=== PATIENT | male | born 1960 | race Caucasian/White ===

== ENCOUNTER 2018-11-06 08:06 | Emergency (ER) | payer MEDICAID ==
[~2018-11-06] VITALS: Ht 177.8 cm; Wt 100.0 kg
[~2018-11-06 08:06] MED LIST: METO100T7 PO; OMEP20TA5 PO; QUET400T3 PO
[2018-11-06] MEDS ORDERED: normal saline 1000ml 1,000 ML IV ONE (09:04)
[2018-11-06] MEDS ORDERED: famotidine/PF 10 mg/ml inj IV ONE (09:05)
[2018-11-06] MEDS ORDERED: morphine 2 MG/ML inj. syringe IV PRN (09:05)
[2018-11-06] MEDS ORDERED: diphenhydrAMINE 50 mg/ml inj IV ONE (09:05)
[2018-11-06] MEDS ORDERED: proCHLORperazine 10 MG/2 ml inj IV ONE (09:05)
[2018-11-06] MEDS ORDERED: normal saline 1000ML IV soln IVB ONE ×2 (09:05→12:20)
[2018-11-06 09:15] LABS: ALANINE AMINOTRANSFERASE 31 U/L (12-78); ALBUMIN 4.5 G/DL (3.4-5.0); ALBUMIN/GLOBULIN RATIO 0.9 (1.1-1.5); ALKALINE PHOSPHATASE 100 IU/L (46-116); ANION GAP 18 (8-16); ASPARTATE AMINO TRANSFERASE 33 U/L (10-37); BLOOD UREA NITROGEN 23 MG/DL (7-18); BUN/CREATININE RATIO 15.6 (5.4-32.0); CALCIUM 10.3 MG/DL (8.5-10.1); CHLORIDE 99 MMOL/L (99-107); CREATININE 1.47 MG/DL (0.60-1.10); GLUCOSE 168 MG/DL (70-104); LIPASE 90 U/L (73-393); POTASSIUM 4.1 MMOL/L (3.5-5.1); SODIUM 140 MMOL/L (135-145); TOTAL CARBON DIOXIDE 22.6 MMOL/L (24-32); TOTAL PROTEIN 9.4 G/DL (6.4-8.2); eGFR 49 ML/MIN
[2018-11-06 09:34] LABS: INR 1.1 INR; PROTHROMBIN TIME 11.2 SECONDS (9.0-12.0)
[2018-11-06 09:44] LABS: MAGNESIUM 1.8 MG/DL (1.5-2.4)
[2018-11-06 09:47] LABS: BASOPHILS % (AUTO) 0.3 % (0-1); EOSINOPHILS % (AUTO) 0 % (0-6); HEMATOCRIT 54.2 % (42.0-52.0); LYMPHOCYTES # (AUTO) 0.8 X10'3 (1.1-4.8); LYMPHOCYTES % (AUTO) 5.2 % (21-51); MEAN CORPUSCULAR HEMOGLOBIN 31.3 PG (27.0-31.0); MEAN CORPUSCULAR HGB CONC 34.2 % (33.0-36.5); MEAN CORPUSCULAR VOLUME 91.4 FL (78-98); MEAN PLATELET VOLUME 9.4 FL (7.4-10.4); MONOCYTES # (AUTO) 0.5 X10'3 (0-0.9); NEUTROPHILS # (AUTO) 13.8 X10'3 (1.8-7.7); NEUTROPHILS % (AUTO) 91.5 % (42-75); PLATELET COUNT 257 X10'3 (140-440); RED BLOOD COUNT 5.93 X10'6 (4.70-6.10); RED CELL DISTRIBUTION WIDTH 13.3 % (11.5-14.5); WHITE BLOOD COUNT 15.1 X10'3 (4.5-11.0)
[2018-11-06 09:50] LABS: HEMOGLOBIN 18.5 g/dl (14.0-17.9)
[2018-11-06 09:55] LABS: CLARITY,URINE CLOUDY (Clear); COLOR,URINE YELLOW (Yellow); GLUCOSE, URINE NEGATIVE (Neg); KETONES,URINE 15 mg/dl (Neg); LEUKOCYTE ESTERASE ,URINE NEGATIVE (Neg); OCCULT BLOOD,URINE MODERATE (Neg); PH,URINE 5.5 (4.8-8.0); PROTEIN,URINE 100 mg/dl (Neg); UA COLLECTION TYPE CLN CATCH MIDSTREAM; UROBILINOGEN,URINE 0.2 E.U/dL (0.2-1.0)
[2018-11-06 10:03] LABS: NITRITES, URINE NEGATIVE (Neg)
[2018-11-06 10:05] LABS: HYALINE CASTS >30 /LPF (NEGATIVE)
[2018-11-06 10:06] LABS: BACTERIA,URINE 1+ /HPF (Neg); SQUAMOUS EPITHELIAL CELL,UR FEW /LPF (FEW)
[2018-11-06 10:07] LABS: FINE GRANULAR CAST 0-3 /LPF (NEGATIVE); RBC,URINE 0-2 /HPF (0-2)
--- NOTE | 2018-11-06 11:51 | NUR ---
FLU PRECAUTIONS DISCONTINUED
--- NOTE | 2018-11-06 12:14 | NUR ---
PATIENT TOLERATING PO FLLUID: 120 ML APPLE JUICE, DENIES NAUSEA OR INCREASED ABDOMINAL PAIN
[2018-11-06] MEDS ORDERED: PROC25SU30 PO (12:48)
[2018-11-06] MEDS ORDERED: LIDOcaine 1.5% w/epinephrine 1:200,000 5ml ampul IJ ONE (13:25)
[2018-11-06] MEDS ORDERED: LIDOcaine 1% w/epiNEPHrine 1:200,000 30ml vial IJ ONE (13:30)
[2018-11-06 13:57] VITALS: BP 145/67
--- NOTE | 2018-11-06 14:04 | NUR ---
WOUND CARE ORDERS ORDERED ON THE WRONG PATIENT
[2018-11-08] MEDS ORDERED: ONDA4TAB6 PO (17:43)
[2018-11-08] MEDS ORDERED: OMEP20TA23 PO (18:08)
[2018-11-08] MEDS ORDERED: LORA0.5T PO (20:32)
== END 2018-11-06 14:17 | disposition home or self-care (01) ==
LOC: ER 08:07
DX: E86.0 Dehydration (principal); R73.9 Hyperglycemia, unspecified; K52.9 Noninfective gastroenteritis and colitis, unspecified; E78.00 Pure hypercholesterolemia, unspecified; I10 Essential (primary) hypertension; F12.90 Cannabis use, unspecified, uncomplicated; Z86.19 Personal history of other infectious and parasitic diseases; Z90.49 Acquired absence of other specified parts of digestive tract; Z98.890 Other specified postprocedural states; Z88.8 Allergy status to other drugs, medicaments and biological substances; Z79.899 Other long term (current) drug therapy
CPT/HCPCS: 36415; 80053; 81001; 83690; 83735; 85025; 85610; 87088; 87502; 87503; 96361; 96374; 96375; 99283; J0780; J1200; J2270; J3490; J7030

== ENCOUNTER 2019-10-18 08:25 | Emergency (ER) | payer MEDICAID ==
[~2019-10-18] VITALS: Ht 180.3 cm; Wt 80.0 kg
[~2019-10-18 08:25] MED LIST changes: +HYDR-4383 PO; +OMEP20TA23 PO; +ONDA4TAB6 PO; +PROC25SU30 PO; -QUET400T3 PO; +QUET400T5 PO
[2019-10-18 09:14] LABS: BASOPHILS # (AUTO) 0.1 X10'3 (0-0.2); BASOPHILS % (AUTO) 0.3 % (0-1); EOSINOPHILS % (AUTO) 0 % (0-6); HEMATOCRIT 50.4 % (42.0-52.0); HEMOGLOBIN 17.9 g/dl (14.0-17.9); LYMPHOCYTES # (AUTO) 1.3 X10'3 (1.1-4.8); LYMPHOCYTES % (AUTO) 7.6 % (21-51); MEAN CORPUSCULAR HEMOGLOBIN 32.3 PG (27.0-31.0); MEAN CORPUSCULAR HGB CONC 35.6 g/dL (33.0-36.5); MEAN CORPUSCULAR VOLUME 90.7 FL (78-98); MEAN PLATELET VOLUME 7.9 FL (7.4-10.4); MONOCYTES # (AUTO) 0.6 X10'3 (0-0.9); MONOCYTES % (AUTO) 3.6 % (2-12); NEUTROPHILS # (AUTO) 14.6 X10'3 (1.8-7.7); NEUTROPHILS % (AUTO) 88.5 % (42-75); PLATELET COUNT 214 X10'3 (140-440); RED BLOOD COUNT 5.56 X10'6 (4.70-6.10); RED CELL DISTRIBUTION WIDTH 12.9 % (11.5-14.5); WHITE BLOOD COUNT 16.5 X10'3 (4.5-11.0)
[2019-10-18 09:27] LABS: ALANINE AMINOTRANSFERASE 24 U/L (12-78); ALBUMIN 4.3 G/DL (3.4-5.0); ALBUMIN/GLOBULIN RATIO 1.1 (1.1-1.5); ALKALINE PHOSPHATASE 95 IU/L (46-116); AMYLASE 37 U/L (25-115); ANION GAP 12 (8-16); ASPARTATE AMINO TRANSFERASE 19 U/L (10-37); BILIRUBIN,TOTAL 1.3 MG/DL (0.1-1.0); BLOOD UREA NITROGEN 8 MG/DL (7-18); BUN/CREATININE RATIO 8.5 (5.4-32.0); CALCIUM 9.4 MG/DL (8.5-10.1); CHLORIDE 105 MMOL/L (99-107); CREATININE 0.94 MG/DL (0.60-1.10); GLUCOSE 137 MG/DL (70-104); LIPASE 70 U/L (73-393); POTASSIUM 3.8 MMOL/L (3.5-5.1); SODIUM 141 MMOL/L (135-145); TOTAL CARBON DIOXIDE 24.4 MMOL/L (24-32); TOTAL PROTEIN 8.3 G/DL (6.4-8.2); eGFR 82 ML/MIN
[2019-10-18] MEDS ORDERED: mag hydrox/Alum hydrox/simeth 30ml oral suspension PO ONE (10:00)
[2019-10-18] MEDS ORDERED: normal saline 1000ML IV soln IVB ONE (10:00)
[2019-10-18] MEDS ORDERED: ondansetron/PF 4mg/2ml inj IV ONE (10:00)
[2019-10-18] MEDS ORDERED: haloperidol lactate 5mg/ml inj IM ONE (10:00)
[2019-10-18] MEDS ORDERED: diphenhydrAMINE 50 mg/ml inj IV ONE (10:00)
[2019-10-18] MEDS ORDERED: ketorolac tromethamine 15mg/ml inj. IV ONE (10:05)
[2019-10-18] MEDS ORDERED: famotidine 10mg tablet PO ONE (11:25)
[2019-10-18] MEDS ORDERED: famotidine 20mg tablet PO ONE (11:25)
[2019-10-18] MEDS ORDERED: dicyclomine 10 MG capsule PO ONE (11:25)
[2019-10-18 11:31] VITALS: BP 175/88
[2019-10-18] MEDS ORDERED: LORazepam 2 mg/ml vial IV ONE (12:20)
[2019-10-18] MEDS ORDERED: ONDA4TAB6 PO (12:20)
[2019-10-18] MEDS ORDERED: DICY10CA88 PO (12:20)
[2019-10-18] MEDS ORDERED: MAG355OR18 PO (12:20)
== END 2019-10-18 12:41 | disposition home or self-care (01) ==
LOC: ER 08:26
DX: K29.70 Gastritis, unspecified, without bleeding (principal); I10 Essential (primary) hypertension; F31.9 Bipolar disorder, unspecified; F12.90 Cannabis use, unspecified, uncomplicated; F17.200 Nicotine dependence, unspecified, uncomplicated; F10.99 Alcohol use, unspecified with unspecified alcohol-induced disorder; Z79.899 Other long term (current) drug therapy; Z90.49 Acquired absence of other specified parts of digestive tract; Z86.19 Personal history of other infectious and parasitic diseases; Z90.89 Acquired absence of other organs; Y90.9 Presence of alcohol in blood, level not specified
CPT/HCPCS: 80053; 82150; 83690; 85025; 93005; 96361; 96372; 96374; 96375; 99284; J1200; J1630; J1885; J2060; J2405; J7030

== ENCOUNTER 2020-02-12 20:14 | Emergency (ER) | payer MEDICAID ==
[~2020-02-12] VITALS: Ht 177.8 cm; Wt 87.0 kg
[~2020-02-12 20:14] MED LIST changes: +DICY10CA88 PO
[2020-02-12] MEDS ORDERED: proCHLORperazine 10 MG/2 ml inj IV ONE (20:55)
[2020-02-12] MEDS ORDERED: LIDOcaine Viscous 15ml cup TP ONE (20:55)
[2020-02-12] MEDS ORDERED: mag hydrox/Alum hydrox/simeth 30ml oral suspension PO ONE (20:55)
[2020-02-12] MEDS ORDERED: normal saline 1000ML IV soln IVB ONE (20:55)
[2020-02-12 20:57] LABS: BASOPHILS # (AUTO) 0.1 X10'3 (0-0.2); BASOPHILS % (AUTO) 0.6 % (0-1); EOSINOPHILS % (AUTO) 0.1 % (0-6); HEMATOCRIT 49.4 % (42.0-52.0); HEMOGLOBIN 17.3 g/dl (14.0-17.9); LYMPHOCYTES # (AUTO) 1.1 X10'3 (1.1-4.8); LYMPHOCYTES % (AUTO) 11.4 % (21-51); MEAN CORPUSCULAR HEMOGLOBIN 32.2 PG (27.0-31.0); MEAN CORPUSCULAR HGB CONC 35.1 g/dL (33.0-36.5); MEAN CORPUSCULAR VOLUME 91.8 FL (78-98); MONOCYTES # (AUTO) 0.4 X10'3 (0-0.9); MONOCYTES % (AUTO) 4.2 % (2-12); NEUTROPHILS # (AUTO) 8.2 X10'3 (1.8-7.7); NEUTROPHILS % (AUTO) 83.7 % (42-75); PLATELET COUNT 245 X10'3 (140-440); RED BLOOD COUNT 5.39 X10'6 (4.70-6.10); RED CELL DISTRIBUTION WIDTH 13.3 % (11.5-14.5); WHITE BLOOD COUNT 9.8 X10'3 (4.5-11.0)
[2020-02-12 21:07] LABS: ALANINE AMINOTRANSFERASE 40 U/L (12-78); ALBUMIN 4.5 G/DL (3.4-5.0); ALBUMIN/GLOBULIN RATIO 1.2 (1.1-1.5); ALKALINE PHOSPHATASE 88 IU/L (46-116); ANION GAP 13 (8-16); ASPARTATE AMINO TRANSFERASE 50 U/L (10-37); BILIRUBIN,TOTAL 1.8 MG/DL (0.1-1.0); BLOOD UREA NITROGEN 20 MG/DL (7-18); BUN/CREATININE RATIO 16.7 (5.4-32.0); CALCIUM 9.4 MG/DL (8.5-10.1); CHLORIDE 102 MMOL/L (99-107); GLUCOSE 136 MG/DL (70-104); LIPASE 209 U/L (73-393); POTASSIUM 3.5 MMOL/L (3.5-5.1); SODIUM 139 MMOL/L (135-145); TOTAL CARBON DIOXIDE 24.2 MMOL/L (24-32); TOTAL PROTEIN 8.2 G/DL (6.4-8.2); eGFR 62 ML/MIN
[2020-02-12 21:20] LABS: CLARITY,URINE SLIGHTLY CLOUDY (Clear); COLOR,URINE YELLOW (Yellow); GLUCOSE, URINE NEGATIVE (Neg); KETONES,URINE 40 mg/dl (Neg); LEUKOCYTE ESTERASE ,URINE NEGATIVE (Neg); NITRITES, URINE NEGATIVE (Neg); OCCULT BLOOD,URINE TRACE-INTACT (Neg); PROTEIN,URINE 100 mg/dl (Neg)
[2020-02-12 21:24] LABS: UA COLLECTION TYPE CLN CATCH MIDSTREAM
[2020-02-12 21:26] LABS: BACTERIA,URINE FEW /HPF (Neg); MUCUS STRANDS MODERATE /LPF (Neg); RBC,URINE 0-2 /HPF (0-2); SQUAMOUS EPITHELIAL CELL,UR FEW /LPF (FEW); WBC,URINE 0-4 /HPF (0-4)
[2020-02-12 21:44] VITALS: BP 147/110
[2020-02-12] MEDS ORDERED: MECL-183 PO (22:03)
[2020-02-12] MEDS ORDERED: ketorolac tromethamine 15mg/ml inj. IV ONE (22:10)
== END 2020-02-12 22:23 | disposition home or self-care (01) ==
LOC: ER 20:14
DX: K29.70 Gastritis, unspecified, without bleeding (principal); R10.13 Epigastric pain; R11.10 Vomiting, unspecified; R19.7 Diarrhea, unspecified; K59.00 Constipation, unspecified; E78.00 Pure hypercholesterolemia, unspecified; I10 Essential (primary) hypertension; F31.9 Bipolar disorder, unspecified; F12.90 Cannabis use, unspecified, uncomplicated; Z86.19 Personal history of other infectious and parasitic diseases; Z90.49 Acquired absence of other specified parts of digestive tract; Z90.89 Acquired absence of other organs; Z98.890 Other specified postprocedural states; Z91.09 Other allergy status, other than to drugs and biological substances; Z79.899 Other long term (current) drug therapy
CPT/HCPCS: 36415; 80053; 81001; 83690; 85025; 96361; 96374; 96375; 99284; J0780; J1885; J7030

== ENCOUNTER 2020-12-11 21:47 | Emergency (ER) | payer MEDICAID ==
[~2020-12-11] VITALS: Ht 180.3 cm; Wt 95.4 kg
[~2020-12-11 21:47] MED LIST changes: +MECL-226 PO
[2020-12-11] MEDS ORDERED: mag hydrox/Alum hydrox/simeth 30ml oral suspension PO ONE (22:40)
[2020-12-11] MEDS ORDERED: LIDOcaine Viscous 15ml cup MM ONE (22:40)
[2020-12-11] MEDS ORDERED: normal saline 1000ML IV soln IVB ONE (22:40)
[2020-12-11] MEDS ORDERED: ondansetron/PF 4mg/2ml inj IV ONE (22:40)
[2020-12-11] MEDS ORDERED: metoclopramide 5 mg/ml inj IV ONE (22:40)
[2020-12-11] MEDS ORDERED: LORazepam 2 mg/ml vial IV ONE (22:40)
[2020-12-11 22:55] LABS: BASOPHILS % (AUTO) 0.3 % (0-1); EOSINOPHILS # (AUTO) 0.1 X10'3 (0-0.9); EOSINOPHILS % (AUTO) 0.8 % (0-6); HEMATOCRIT 46.3 % (42.0-52.0); HEMOGLOBIN 16.3 g/dl (14.0-17.9); LYMPHOCYTES # (AUTO) 1.3 X10'3 (1.1-4.8); LYMPHOCYTES % (AUTO) 15.4 % (21-51); MEAN CORPUSCULAR HEMOGLOBIN 31.1 PG (27.0-31.0); MEAN CORPUSCULAR HGB CONC 35.2 g/dL (33.0-36.5); MEAN CORPUSCULAR VOLUME 88.5 FL (78-98); MONOCYTES # (AUTO) 0.5 X10'3 (0-0.9); MONOCYTES % (AUTO) 5.6 % (2-12); NEUTROPHILS # (AUTO) 6.7 X10'3 (1.8-7.7); NEUTROPHILS % (AUTO) 77.9 % (42-75); PLATELET COUNT 212 X10'3 (140-440); RED BLOOD COUNT 5.23 X10'6 (4.70-6.10); WHITE BLOOD COUNT 8.7 X10'3 (4.5-11.0)
[2020-12-11 23:17] LABS: ALANINE AMINOTRANSFERASE 48 U/L (12-78); ALBUMIN 4.1 G/DL (3.4-5.0); ALBUMIN/GLOBULIN RATIO 1.1 (1.1-1.5); ALKALINE PHOSPHATASE 90 IU/L (46-116); ANION GAP 11 (8-16); ASPARTATE AMINO TRANSFERASE 48 U/L (10-37); BILIRUBIN,TOTAL 1.2 MG/DL (0.1-1.0); BLOOD UREA NITROGEN 16 MG/DL (7-18); BUN/CREATININE RATIO 13.8 (5.4-32.0); CALCIUM 9.2 MG/DL (8.5-10.1); CHLORIDE 103 MMOL/L (99-107); CREATININE 1.16 MG/DL (0.60-1.10); GLUCOSE 156 MG/DL (70-104); LIPASE 70 U/L (73-393); POTASSIUM 3.3 MMOL/L (3.5-5.1); SODIUM 140 MMOL/L (135-145); TOTAL CARBON DIOXIDE 26.1 MMOL/L (24-32); TOTAL PROTEIN 7.7 G/DL (6.4-8.2); eGFR 64 ML/MIN
[2020-12-11] MEDS ORDERED: POLY119P2 PO (23:45)
[2020-12-12 00:25] LABS: CLARITY,URINE SLIGHTLY CLOUDY (Clear); COLOR,URINE YELLOW (Yellow); GLUCOSE, URINE NEGATIVE (Neg); KETONES,URINE >=80 mg/dl (Neg); LEUKOCYTE ESTERASE ,URINE TRACE (Neg); NITRITES, URINE NEGATIVE (Neg); OCCULT BLOOD,URINE LARGE (Neg); PROTEIN,URINE 30 mg/dl (Neg)
[2020-12-12 00:31] LABS: UA COLLECTION TYPE CLN CATCH MIDSTREAM
[2020-12-12 00:32] LABS: BACTERIA,URINE FEW /HPF (Neg); RBC,URINE 50-100 /HPF (0-2); SQUAMOUS EPITHELIAL CELL,UR FEW /LPF (FEW); WBC,URINE 0-4 /HPF (0-4)
[2020-12-12 02:20] VITALS: BP 165/95
== END 2020-12-12 02:21 | disposition home or self-care (01) ==
LOC: ER 21:47
DX: R10.10 Upper abdominal pain, unspecified (principal); R11.2 Nausea with vomiting, unspecified; K59.00 Constipation, unspecified; E78.00 Pure hypercholesterolemia, unspecified; I10 Essential (primary) hypertension; F31.9 Bipolar disorder, unspecified; F17.200 Nicotine dependence, unspecified, uncomplicated; F12.90 Cannabis use, unspecified, uncomplicated; Z86.19 Personal history of other infectious and parasitic diseases; Z90.49 Acquired absence of other specified parts of digestive tract; Z90.89 Acquired absence of other organs; Z88.8 Allergy status to other drugs, medicaments and biological substances; Z79.899 Other long term (current) drug therapy
CPT/HCPCS: 36415; 80053; 81001; 83690; 85025; 87088; 96361; 96374; 96375; 99284; J2060; J2405; J2765; J7030

== ENCOUNTER 2020-12-16 07:28 | Emergency (ER) | payer MEDICAID ==
[~2020-12-16] VITALS: Ht 180.3 cm; Wt 89.1 kg
[~2020-12-16 07:28] MED LIST changes: +POLY119P2 PO
[2020-12-16 07:34] VITALS: BP 145/98
[2020-12-16] MEDS ORDERED: normal saline 1000ML IV soln IVB ONE (08:05)
[2020-12-16] MEDS ORDERED: ondansetron/PF 4mg/2ml inj IV ONE (08:05)
[2020-12-16] MEDS ORDERED: LIDOcaine Viscous 15ml cup MM ONE (08:05)
[2020-12-16] MEDS ORDERED: mag hydrox/Alum hydrox/simeth 30ml oral suspension PO ONE (08:05)
[2020-12-16] MEDS ORDERED: famotidine 20mg tablet PO ONE (08:05)
[2020-12-16 08:51] LABS: ALBUMIN 4.2 G/DL (3.4-5.0); ANION GAP 10 (8-16); BILIRUBIN,TOTAL 1.2 MG/DL (0.1-1.0); BLOOD UREA NITROGEN 10 MG/DL (7-18); BUN/CREATININE RATIO 10.6 (5.4-32.0); CALCIUM 9.6 MG/DL (8.5-10.1); CHLORIDE 104 MMOL/L (99-107); CREATININE 0.94 MG/DL (0.60-1.10); GLUCOSE 125 MG/DL (70-104); POTASSIUM 3.9 MMOL/L (3.5-5.1); SODIUM 142 MMOL/L (135-145); TOTAL CARBON DIOXIDE 28.1 MMOL/L (24-32); TOTAL PROTEIN 8.4 G/DL (6.4-8.2); eGFR 81 ML/MIN
[2020-12-16 08:52] LABS: ALANINE AMINOTRANSFERASE 47 U/L (12-78); ALKALINE PHOSPHATASE 106 IU/L (46-116); ASPARTATE AMINO TRANSFERASE 25 U/L (10-37); LIPASE 78 U/L (73-393)
[2020-12-16 09:13] LABS: BASOPHILS % (AUTO) 0.3 % (0-1); EOSINOPHILS % (AUTO) 0.1 % (0-6); LYMPHOCYTES # (AUTO) 0.8 X10'3 (1.1-4.8); LYMPHOCYTES % (AUTO) 7.9 % (21-51); MEAN PLATELET VOLUME 8.3 FL (7.4-10.4); MONOCYTES # (AUTO) 0.4 X10'3 (0-0.9); MONOCYTES % (AUTO) 3.6 % (2-12); NEUTROPHILS # (AUTO) 8.7 X10'3 (1.8-7.7); NEUTROPHILS % (AUTO) 88.1 % (42-75); PLATELET COUNT 251 X10'3 (140-440); RED CELL DISTRIBUTION WIDTH 13.1 % (11.5-14.5); WHITE BLOOD COUNT 9.9 X10'3 (4.5-11.0)
[2020-12-16 09:23] LABS: HEMATOCRIT 48.5 % (42.0-52.0); HEMOGLOBIN 16.9 g/dl (14.0-17.9); MEAN CORPUSCULAR HEMOGLOBIN 31.9 PG (27.0-31.0); MEAN CORPUSCULAR HGB CONC 34.8 g/dL (33.0-36.5); MEAN CORPUSCULAR VOLUME 91.7 FL (78-98); RED BLOOD COUNT 5.29 X10'6 (4.70-6.10)
[2020-12-16] MEDS ORDERED: BISA10SU60 RC (09:31)
[2020-12-16] MEDS ORDERED: BISA-78 PO (09:31)
== END 2020-12-16 09:43 | disposition home or self-care (01) ==
LOC: ER 07:28
DX: K29.00 Acute gastritis without bleeding (principal); K59.00 Constipation, unspecified; R10.13 Epigastric pain; R11.2 Nausea with vomiting, unspecified; E78.00 Pure hypercholesterolemia, unspecified; I10 Essential (primary) hypertension; K21.9 Gastro-esophageal reflux disease without esophagitis; G89.29 Other chronic pain; F31.9 Bipolar disorder, unspecified; F17.200 Nicotine dependence, unspecified, uncomplicated; F12.90 Cannabis use, unspecified, uncomplicated; Z86.19 Personal history of other infectious and parasitic diseases; Z90.49 Acquired absence of other specified parts of digestive tract; Z90.89 Acquired absence of other organs; Z88.8 Allergy status to other drugs, medicaments and biological substances; Z79.899 Other long term (current) drug therapy
CPT/HCPCS: 36415; 80053; 83690; 85025; 96361; 96374; 99284; J2405; J7030

== ENCOUNTER 2020-12-22 10:11 | Emergency (ER) | payer MEDICAID ==
[~2020-12-22] VITALS: Ht 177.8 cm; Wt 87.9 kg
[~2020-12-22 10:11] MED LIST changes: +BISA-78 PO; +BISA10SU60 RC
[2020-12-22] MEDS ORDERED: mag hydrox/Alum hydrox/simeth 30ml oral suspension PO ONE (10:50)
[2020-12-22] MEDS ORDERED: normal saline 1000ml 1,000 ML IV ONE (10:50)
[2020-12-22] MEDS ORDERED: LIDOcaine Viscous 15ml cup MM ONE (10:50)
[2020-12-22] MEDS ORDERED: famotidine/PF 10 mg/ml inj IV ONE (10:50)
[2020-12-22] MEDS ORDERED: ondansetron/PF 4mg/2ml inj IV ONE (10:50)
[2020-12-22 11:13] LABS: CLARITY,URINE SLIGHTLY CLOUDY (Clear); COLOR,URINE YELLOW (Yellow); GLUCOSE, URINE NEGATIVE (Neg); KETONES,URINE NEGATIVE (Neg); LEUKOCYTE ESTERASE ,URINE NEGATIVE (Neg); NITRITES, URINE NEGATIVE (Neg); OCCULT BLOOD,URINE NEGATIVE (Neg); PH,URINE >=9.0 (4.8-8.0); PROTEIN,URINE 30 mg/dl (Neg)
[2020-12-22 11:15] LABS: UA COLLECTION TYPE CLN CATCH MIDSTREAM
[2020-12-22 11:16] VITALS: BP 127/92
[2020-12-22 11:18] LABS: BASOPHILS % (AUTO) 0.3 % (0-1); EOSINOPHILS % (AUTO) 0.4 % (0-6); HEMATOCRIT 50.8 % (42.0-52.0); HEMOGLOBIN 17.9 g/dl (14.0-17.9); LYMPHOCYTES # (AUTO) 1.2 X10'3 (1.1-4.8); LYMPHOCYTES % (AUTO) 10.5 % (21-51); MEAN CORPUSCULAR HGB CONC 35.2 g/dL (33.0-36.5); MEAN PLATELET VOLUME 8.1 FL (7.4-10.4); MONOCYTES # (AUTO) 0.4 X10'3 (0-0.9); MONOCYTES % (AUTO) 3.5 % (2-12); NEUTROPHILS # (AUTO) 9.8 X10'3 (1.8-7.7); NEUTROPHILS % (AUTO) 85.3 % (42-75); PLATELET COUNT 274 X10'3 (140-440); RED BLOOD COUNT 5.77 X10'6 (4.70-6.10); RED CELL DISTRIBUTION WIDTH 13.1 % (11.5-14.5); WHITE BLOOD COUNT 11.5 X10'3 (4.5-11.0)
[2020-12-22 11:23] LABS: MUCUS STRANDS MANY /LPF (Neg); SQUAMOUS EPITHELIAL CELL,UR FEW /LPF (FEW)
[2020-12-22 11:23] LABS: ALANINE AMINOTRANSFERASE 40 U/L (12-78); ALBUMIN 4.2 G/DL (3.4-5.0); ALBUMIN/GLOBULIN RATIO 1.1 (1.1-1.5); ALKALINE PHOSPHATASE 109 IU/L (46-116); ANION GAP 10 (8-16); ASPARTATE AMINO TRANSFERASE 22 U/L (10-37); BILIRUBIN,TOTAL 1.2 MG/DL (0.1-1.0); BLOOD UREA NITROGEN 10 MG/DL (7-18); BUN/CREATININE RATIO 11.1 (5.4-32.0); CALCIUM 9.5 MG/DL (8.5-10.1); CHLORIDE 104 MMOL/L (99-107); GLUCOSE 125 MG/DL (70-104); LIPASE 68 U/L (73-393); POTASSIUM 4.2 MMOL/L (3.5-5.1); SODIUM 140 MMOL/L (135-145); TOTAL CARBON DIOXIDE 25.6 MMOL/L (24-32); TOTAL PROTEIN 8.2 G/DL (6.4-8.2); eGFR 86 ML/MIN
[2020-12-22 11:24] LABS: BACTERIA,URINE FEW /HPF (Neg)
[2020-12-22 11:26] LABS: HYALINE CASTS 0-3 /LPF (NEGATIVE)
[2020-12-22 11:28] LABS: RBC,URINE 0-2 /HPF (0-2); WBC,URINE 0-4 /HPF (0-4)
[2020-12-22 11:31] LABS: TRANSITIONAL EPI CELLS,URINE FEW /HPF
== END 2020-12-22 12:13 | disposition home or self-care (01) ==
LOC: ER 10:15
DX: R11.2 Nausea with vomiting, unspecified (principal); K59.00 Constipation, unspecified; R10.13 Epigastric pain; E78.00 Pure hypercholesterolemia, unspecified; I10 Essential (primary) hypertension; K21.9 Gastro-esophageal reflux disease without esophagitis; G89.29 Other chronic pain; F12.90 Cannabis use, unspecified, uncomplicated; Z86.19 Personal history of other infectious and parasitic diseases; Z90.49 Acquired absence of other specified parts of digestive tract; Z90.89 Acquired absence of other organs; Z88.8 Allergy status to other drugs, medicaments and biological substances; Z79.899 Other long term (current) drug therapy
CPT/HCPCS: 36415; 80053; 81001; 83690; 85025; 96361; 96374; 96375; 99284; J2405; J3490; J7030

== ENCOUNTER 2021-03-20 16:33 | Emergency (ER) | payer MEDICAID ==
[~2021-03-20] VITALS: Ht 177.8 cm; Wt 90.0 kg
[2021-03-20] MEDS ORDERED: LIDOcaine Viscous 15ml cup MM ONE (16:55)
[2021-03-20] MEDS ORDERED: ondansetron 4mg rapidly disintigrating tab PO ONE (16:55)
[2021-03-20] MEDS ORDERED: mag hydrox/Alum hydrox/simeth 30ml oral suspension PO ONE (16:55)
[2021-03-20 17:36] VITALS: BP 120/71
== END 2021-03-20 17:39 | disposition home or self-care (01) ==
LOC: ER 16:34
DX: R10.13 Epigastric pain (principal); R11.2 Nausea with vomiting, unspecified; K59.00 Constipation, unspecified; E78.00 Pure hypercholesterolemia, unspecified; I10 Essential (primary) hypertension; K21.9 Gastro-esophageal reflux disease without esophagitis; G89.29 Other chronic pain; F31.9 Bipolar disorder, unspecified; F12.90 Cannabis use, unspecified, uncomplicated; Z86.19 Personal history of other infectious and parasitic diseases; Z90.49 Acquired absence of other specified parts of digestive tract; Z90.89 Acquired absence of other organs; Z88.8 Allergy status to other drugs, medicaments and biological substances; Z79.899 Other long term (current) drug therapy
CPT/HCPCS: 99283

== ENCOUNTER 2021-08-01 08:55 | Emergency (ER) | payer MEDICAID ==
[~2021-08-01] VITALS: Ht 177.8 cm; Wt 221.0 kg
[2021-08-01] MEDS ORDERED: ondansetron 4mg rapidly disintigrating tab PO STA (09:12)
[2021-08-01] MEDS ORDERED: mag hydrox/Alum hydrox/simeth 30ml oral suspension PO ONE (09:15)
[2021-08-01] MEDS ORDERED: sucralfate 1 gm tablet PO ONE (09:15)
[2021-08-01] MEDS ORDERED: LIDOcaine Viscous 15ml cup MM ONE (09:15)
[2021-08-01 10:23] VITALS: BP 216/104
[2021-08-01] MEDS ORDERED: PANT-47 PO (11:06)
[2021-08-01] MEDS ORDERED: SUCR1TAB34 PO (11:06)
== END 2021-08-01 12:19 | disposition home or self-care (01) ==
LOC: ER 08:56
DX: K29.70 Gastritis, unspecified, without bleeding (principal); R11.2 Nausea with vomiting, unspecified; R10.10 Upper abdominal pain, unspecified; E78.00 Pure hypercholesterolemia, unspecified; I10 Essential (primary) hypertension; K21.9 Gastro-esophageal reflux disease without esophagitis; G89.29 Other chronic pain; F31.9 Bipolar disorder, unspecified; F17.200 Nicotine dependence, unspecified, uncomplicated; F12.90 Cannabis use, unspecified, uncomplicated; Z86.19 Personal history of other infectious and parasitic diseases; Z90.49 Acquired absence of other specified parts of digestive tract; Z90.89 Acquired absence of other organs; Z98.890 Other specified postprocedural states; Z88.8 Allergy status to other drugs, medicaments and biological substances; Z79.899 Other long term (current) drug therapy
CPT/HCPCS: 99284

== ENCOUNTER 2021-12-08 09:00 | Emergency (ER) | payer MEDICAID ==
[~2021-12-08] VITALS: Ht 180.3 cm; Wt 91.1 kg
[~2021-12-08 09:00] MED LIST changes: +PANT-47 PO; +SUCR1TAB34 PO
[2021-12-08] MEDS ORDERED: sucralfate 1gm/10ml UD suspension PO ONE (09:15)
[2021-12-08] MEDS ORDERED: ondansetron 4mg rapidly disintigrating tab PO ONE (09:15)
[2021-12-08] MEDS ORDERED: LIDOcaine Viscous 15ml cup MM ONE (09:15)
[2021-12-08] MEDS ORDERED: mag hydrox/Alum hydrox/simeth 30ml oral suspension PO ONE (09:15)
[2021-12-08] MEDS ORDERED: sucralfate 1 gm tablet PO ONE (09:30)
--- NOTE | 2021-12-08 09:58 | NUR ---
Pt ambulating to bathroom.
[2021-12-08] MEDS ORDERED: polyethylene glycol 3350 17gm powd pack PO ONE (10:15)
[2021-12-08] MEDS ORDERED: POLY119P2 PO (10:35)
[2021-12-08 11:47] VITALS: BP 179/103
[2021-12-08] MEDS ORDERED: polyethylene glycol 3350 17gm powd pack PO SCH (21:00)
== END 2021-12-08 11:51 | disposition home or self-care (01) ==
LOC: ER 09:01
DX: K31.84 Gastroparesis (principal); R11.2 Nausea with vomiting, unspecified; K59.00 Constipation, unspecified; E78.00 Pure hypercholesterolemia, unspecified; I10 Essential (primary) hypertension; K21.9 Gastro-esophageal reflux disease without esophagitis; F31.9 Bipolar disorder, unspecified; G89.29 Other chronic pain; F12.10 Cannabis abuse, uncomplicated; Z88.8 Allergy status to other drugs, medicaments and biological substances; Z79.899 Other long term (current) drug therapy
CPT/HCPCS: 99284

== ENCOUNTER 2022-01-08 05:50 | Emergency (ER) | payer MEDICAID ==
[~2022-01-08] VITALS: Ht 180.3 cm; Wt 85.7 kg
[2022-01-08] MEDS ORDERED: LIDOcaine Viscous 15ml cup MM ONE (07:05)
[2022-01-08] MEDS ORDERED: mag hydrox/Alum hydrox/simeth 30ml oral suspension PO ONE (07:05)
[2022-01-08] MEDS ORDERED: ondansetron 4mg rapidly disintigrating tab PO ONE (07:05)
[2022-01-08] MEDS ORDERED: pantoprazole 40mg Tablet.DR PO ONE (07:05)
[2022-01-08] MEDS ORDERED: famotidine 20mg tablet PO ONE (07:05)
[2022-01-08] MEDS ORDERED: sucralfate 1gm/10ml UD suspension PO ONE (07:05)
[2022-01-08] MEDS ORDERED: sucralfate 1 gm tablet PO ONE (07:10)
[2022-01-08 07:17] LABS: COLOR,URINE YELLOW (Yellow); GLUCOSE, URINE NEGATIVE (Neg); KETONES,URINE 40 mg/dl (Neg); LEUKOCYTE ESTERASE ,URINE NEGATIVE (Neg); NITRITES, URINE NEGATIVE (Neg); OCCULT BLOOD,URINE NEGATIVE (Neg); PH,URINE 6.5 (4.8-8.0); PROTEIN,URINE TRACE mg/dl (Neg)
[2022-01-08 07:20] LABS: CLARITY,URINE CLEAR (Clear); UA COLLECTION TYPE CLN CATCH MIDSTREAM
[2022-01-08 07:22] LABS: BACTERIA,URINE NONE SEEN /HPF (Neg); MUCUS STRANDS MANY /LPF (Neg); RBC,URINE NONE SEEN /HPF (0-2); SQUAMOUS EPITHELIAL CELL,UR FEW /LPF (FEW); WBC,URINE 0-4 /HPF (0-4)
--- NOTE | 2022-01-08 07:32 | NUR ---
PT STATES HE FEELS BETTER AFTER THE GI COCKTAIL. LAB AT BEDSIDE.
[2022-01-08 08:15] LABS: BASOPHILS % (AUTO) 0.3 % (0-1); EOSINOPHILS % (AUTO) 0.1 % (0-6); HEMATOCRIT 46.8 % (42.0-52.0); HEMOGLOBIN 16.2 g/dl (14.0-17.9); LYMPHOCYTES # (AUTO) 1.2 X10'3 (1.1-4.8); LYMPHOCYTES % (AUTO) 10.1 % (21-51); MEAN CORPUSCULAR HGB CONC 34.6 g/dL (33.0-36.5); MEAN CORPUSCULAR VOLUME 89.5 FL (78-98); MEAN PLATELET VOLUME 8.5 FL (7.4-10.4); MONOCYTES # (AUTO) 0.3 X10'3 (0-0.9); MONOCYTES % (AUTO) 2.8 % (2-12); NEUTROPHILS % (AUTO) 86.7 % (42-75); PLATELET COUNT 216 X10'3 (140-440); RED BLOOD COUNT 5.23 X10'6 (4.70-6.10); RED CELL DISTRIBUTION WIDTH 13.2 % (11.5-14.5); WHITE BLOOD COUNT 11.6 X10'3 (4.5-11.0)
[2022-01-08 08:28] LABS: ALANINE AMINOTRANSFERASE 34 U/L (12-78); ALBUMIN 4.3 G/DL (3.4-5.0); ALBUMIN/GLOBULIN RATIO 1.2 (1.1-1.5); ALKALINE PHOSPHATASE 83 IU/L (46-116); ANION GAP 12 (8-16); ASPARTATE AMINO TRANSFERASE 28 U/L (10-37); BILIRUBIN,TOTAL 1.6 MG/DL (0.1-1.0); BLOOD UREA NITROGEN 17 MG/DL (7-18); BUN/CREATININE RATIO 17.7 (5.4-32.0); CHLORIDE 109 MMOL/L (99-107); CREATININE 0.96 MG/DL (0.60-1.10); GLUCOSE 143 MG/DL (70-104); LIPASE 61 U/L (73-393); POTASSIUM 3.5 MMOL/L (3.5-5.1); SODIUM 145 MMOL/L (135-145); TOTAL CARBON DIOXIDE 23.6 MMOL/L (24-32); TOTAL PROTEIN 7.9 G/DL (6.4-8.2); eGFR 79 ML/MIN
[2022-01-08 08:58] VITALS: BP 148/92
== END 2022-01-08 08:55 | disposition home or self-care (01) ==
LOC: ER 05:50
DX: K29.70 Gastritis, unspecified, without bleeding (principal); E78.00 Pure hypercholesterolemia, unspecified; I10 Essential (primary) hypertension; K21.9 Gastro-esophageal reflux disease without esophagitis; K31.84 Gastroparesis; G89.29 Other chronic pain; F12.90 Cannabis use, unspecified, uncomplicated; Z86.19 Personal history of other infectious and parasitic diseases; Z90.49 Acquired absence of other specified parts of digestive tract; Z98.890 Other specified postprocedural states; Z88.8 Allergy status to other drugs, medicaments and biological substances; Z79.899 Other long term (current) drug therapy
CPT/HCPCS: 36415; 80053; 81001; 83690; 85025; 99284